=== PATIENT | male | born 1930 | race Caucasian/White ===

== ENCOUNTER 2019-11-13 13:01 | Emergency (ER) | payer OTHER ==
[~2019-11-13] VITALS: Ht 170.2 cm; Wt 136.1 kg
--- NOTE | 2019-11-13 13:08 | NUR ---
Patient BIBA ALS accompanied by [facility], transferred to bed 7. RN evaluating patient at bedside.
[2019-11-13 13:13] VITALS: BP 135/76
[2019-11-13] MEDS ORDERED: NACL 0.9% 1,000 ML IV ONE (13:20)
--- NOTE | 2019-11-13 13:20 | NUR ---
89 Y/O MALE BIBA ALS C/O SUDDEN ONSET CHEST PAIN WHILE AT [employer]INING [employer]. PT DENIES N/V/D. DENIES SOB. 7/10 SHARP CHEST PAIN AT THIS TIME THAT DOES NOT RADIATE. RR EVEN AND UNLABORED. PT SVT, ABLE TO CONVERT VIA VALSAVA MANEUVER. PRESENTS WITH 18G TO LT AC. PLACED ON MONITOR. VSS. MEDHX: SVT, HTN ALLERGIES: NKA
[2019-11-13] MEDS ORDERED: ADENOSINE 6 MG/2 ML VIAL IVP ONE ×2 (13:30)
--- NOTE | 2019-11-13 13:37 | NUR ---
PT ABLE TO CONVERT TO SINUS RHYTHM FROM SVT VIA VAGAL MASSAGE. PT REMAINS ON MONITOR. WILL CONTINUE TO MONITOR
[2019-11-13 13:42] LABS: BASOPHILS # (AUTO) 0.1 K/uL (0.00-0.22); BASOPHILS % (AUTO) 2.1 % (0.0-2.0); EOSINOPHILS # (AUTO) 0.1 K/uL (0-0.4); EOSINOPHILS % (AUTO) 1.9 % (0.0-4.0); HEMATOCRIT 41.3 % (36-52); HEMOGLOBIN 14.2 g/dL (12.0-18.0); LYMPHOCYTES % (AUTO) 21.5 % (20.5-51.1); MEAN CORPUSCULAR HEMOGLOBIN 34 pg (27-31); MEAN CORPUSCULAR HGB CONC 34 g/dL (33-37); MEAN CORPUSCULAR VOLUME 98.1 fL (80-94); MONOCYTES # (AUTO) 0.5 K/uL (0.8-1.0); MONOCYTES % (AUTO) 11.2 % (1.7-9.3); NEUTROPHILS % (AUTO) 63.3 % (42.2-75.2); PLATELET COUNT (AUTO) 149 K/uL (140-450); RED BLOOD CELL COUNT(AUTO) 4.21 MIL/uL (4.20-6.10); RED CELL DISTRIBUTION WIDTH 13.4 % (11.6-13.7); WHITE BLOOD COUNT (AUTO) 4.7 K/uL (4.8-10.8)
--- NOTE | 2019-11-13 13:45 | NUR ---
PT STATES HE WOULD LIKE TO SEE A DOCTOR "SOONER RATHER THAN LATER". DR MITCHELL MADE AWARE. PT STATES HE WOULD LIKE TO SEE DOCTOR BEFORE ADENOSINE GIVEN.
[2019-11-13 14:15] LABS: ALBUMIN 3.7 g/dL (3.4-5.0); ANION GAP 11.7 (8-16); ASPARTATE AMINOTRANSFERASE 14 U/L (15-37); CHLORIDE 96 mmol/L (98-107); CREATININE 1.1 mg/dL (0.6-1.3); GLUCOSE 95 mg/dL (74-106); POTASSIUM 3.7 mmol/L (3.5-5.1); SODIUM SERUM 136 mmol/L (136-145); UREA NITROGEN, BLOOD 16 mg/dL (7-18)
--- NOTE | 2019-11-13 14:59 | NUR ---
LAYING IN BED POSITIONED FOR COMFORT. RR EVEN AND UNLABORED. REMAINS ON MONITOR. VSS WILL CONTINUE TO MONITOR. FAMILY AT BEDSIDE
--- NOTE | 2019-11-13 15:16 | NUR ---
MD AT BEDSIDE EXAMINING PT
[2019-11-13 15:45] VITALS: BP 146/86
--- NOTE | 2019-11-13 15:47 | NUR ---
Patient discharged with v/s stable. Written and verbal after care instructions given and explained. Patient verbalized understanding. Ambulatory with steady gait. All questions addressed prior to discharge. Advised to follow up with PMD.
== END 2019-11-13 15:47 | disposition home or self-care (01) ==
LOC: MED 13:01
DX: I47.1 Supraventricular tachycardia (principal); I10 Essential (primary) hypertension; Z98.890 Other specified postprocedural states; Z90.49 Acquired absence of other specified parts of digestive tract; Z85.528 Personal history of other malignant neoplasm of kidney
CPT/HCPCS: 36415; 71045; 80053; 83880; 84484; 85025; 93005; 99285; J0153; J7030; Q0092